=== PATIENT | female | born 2000 | race Caucasian/White ===

== ENCOUNTER 2020-09-04 17:37 | Outpatient (CLI) | payer BC, SELFPAY | END 2020-09-04 17:38 | disposition home or self-care (01) | LOC: ANHCOVIDVC 17:38 | DX: Z23 Encounter for immunization (principal) | CPT/HCPCS: 0001A; 91300 ==

== ENCOUNTER 2020-09-25 17:41 | Outpatient (CLI) | payer BC, SELFPAY | END 2020-09-25 17:42 | disposition home or self-care (01) | LOC: ANHCOVIDVC 17:41 | DX: Z23 Encounter for immunization (principal) | CPT/HCPCS: 0002A; 91300 ==

== ENCOUNTER 2022-01-22 20:48 | Emergency (ER) | payer BC, SELFPAY ==
--- NOTE | ~2022-01-22 | CT_ITS ---
EXAMINATION: CT brain wo con DATE: 01/22/2022 21:24 INDICATION: head injury, vomiting . TECHNIQUE: Computed tomography (CT) of the head was performed without intravenous contrast. The mA wa s adjusted according to patient size. Iterative reconstruction technique was employed. The dose-lengt h product was 605.33 mGy-cm. COMPARISON: None FINDINGS: No acute intracranial hemorrhage or extra-axial fluid collection. No hydrocephalus, mass, or herniation. No acute ischemic infarct. Unremarkable dural venous sinus attenuation. No acute osseous abnormality. The aerated spaces are clear. IMPRESSION: No acute intracranial process. Reviewed, dictated and finalized at location K.
--- NOTE | ~2022-01-22 | CT_ITS ---
EXAMINATION: CT thoracic spine wo con DATE: 01/22/2022 22:30 INDICATION: back pain, fall . TECHNIQUE: Computed tomography (CT) of the thoracic spine was performed without intravenous contrast. Automated exposure control and iterative reconstruction technique were employed. The dose-length pro duct was 339.83 mGy-cm. COMPARISON: None FINDINGS: 12 rib bearing thoracic type vertebral bodies. Vertebral body heights and alignment maintai rian. Facets are aligned. Posterior elements are intact. Multilevel mild degenerative disc disease. No severe central canal or neural foraminal narrowing. No fracture. Visualized lung parenchyma is clear . IMPRESSION: 1. No acute fracture or traumatic malalignment in the thoracic spine. Reviewed, dictated and finalized at location K.
[2022-01-22 21:06] VITALS: BP 110/63; PULSE 69; RESP 18; TEMP 36.5; O2SAT 100
[2022-01-22 21:49] VITALS: O2SAT 100
--- NOTE | 2022-01-22 22:01 | PC.NURSE ---
Courtney CORTEZ at bedside to assess pt.
--- NOTE | 2022-01-22 22:02 | ED.HEATRA ---
HPI - Head Injury General Chief complaint: Head Injury <JUSTIN Bernard Last Filed: 01/22/22 22:54> Stated complaint: head trauma <JUSTIN Bernard Last Filed: 01/22/22 22:54> Time Seen by Provider: 01/22/22 21:13 <JUSTIN Bernard Last Filed: 01/22/22 22:54> Source: patient <JUSTIN Bernard Last Filed: 01/22/22 22:54> Mode of arrival: ambulatory <JUSTIN Bernard Last Filed: 01/22/22 22:54> Limitations: no limitations <JUSTNI Bernard Last Filed: 01/22/22 22:54> History of Present Illness HPI Narrative: This is a 21-year-old female that presents to the emergency department after a fall today with head injury. Reports she was seated on a swing and fell backwards. She fell directly onto her mid back. She did not hit her head. She did not lose consciousness. Since she has had a headache, back pain, and has had several episodes of vomiting which prompted her to be seen. Denies vision changes, or focal numbness or weakness. <JUSTIN Bernard Last Filed: 01/22/22 22:54> Related Data Home medications: Home Medications Medication Instructions Recorded Confirmed norethindrone acetate 1.5 1 tablet PO DAILY 08/23/21 01/24/22 mg-ethinyl estradiol 30 mcg tablet (Junel) <Courtney Garcia PA-C - Last Filed: 01/22/22 22:54> Allergies/Adverse reactions: Allergies Allergy/AdvReac Type Severity Reaction Status Date / Time No Known Allergies Allergy Verified 01/24/22 09:29 <JUSTIN Bernard Last Filed: 01/22/22 22:54> Review of Systems Review of Systems: CONSTITUTIONAL: Denies fever EYES: Denies visual changes GASTROINTESTINAL: Reports nausea, vomiting MUSCULOSKELETAL: Reports back pain, and myalgia. NEUROLOGIC: Reports headache. Denies numbness, or weakness. <JUSTIN Bernard Last Filed: 01/22/22 22:54> All systems reviewed & are unremarkable except as noted in HPI and below <Courtney Garcia PA-C - Last Filed: 01/22/22 22:54> PMFSH Past Medical History Medical History: Medical History Anemia Anxiety History of bipolar disorder <Courtney Garcia PA-C - Last Filed: 01/22/22 22:54> Family History Family History: Family History Father Depression Grandparent Malignant neoplasm of prostate Other No family history of diabetes mellitus <Courtney Garcia PA-C - Last Filed: 01/22/22 22:54> Social History Social History: Social History Smoking status: Never smoker Alcohol intake: current Substance use: never Additional occupation/education comments: Agree to blood products: Yes <Courtney Garcia PA-C - Last Filed: 01/22/22 22:54> Exam Narrative: GENERAL: Well-appearing, well-nourished, and in no acute distress. HEAD: Normocephalic, atraumatic. EYES: PERRLA and EOMI. ENT: Nares clear, no rhinorrhea or epistaxis. Mucous membranes moist. Oropharynx without tonsillar hypertrophy exudate or other lesions. Bilateral TMs pearly can non-bulging NECK: Supple. No adenopathy or masses. No midline cervical spine tenderness CHEST: Clear to auscultation. No respiratory distress. No wheezes rales or rhonchi HEART: Regular rate and rhythm. No murmur heard. Normal peripheral pulses. BACK: Tender to palpation of midline thoracic spine. No lumbar spine tenderness EXTREMITIES: Normal range of motion. No edema. Strength equal in bilateral upper and lower extremities (5/5) SKIN: Warm, dry, no rash. NEURO: No focal deficits. Alert and oriented x3. Cranial nerves II through XII grossly intact PSYCH: Normal mood and affect <Courtney Garcia PA-C - Last Filed: 01/22/22 22:54> Course CUST[employer]S PORT DIRECTOR/PA Physician Supervision For this patient encounter, I reviewed the CUSTOMS PORT DIRECTOR or PA documentation, treatment alyx
--- NOTE | 2022-01-22 22:15 | PC.NURSE ---
Unable to collect bedside . Patient urinated before RN could collect. Patient states that there is no chance of and willing to sign acknowledgement of risk of CT if . CT made aware.
--- NOTE | 2022-01-22 22:26 | PC.NURSE ---
Patient off unit to CT.
[2022-01-22] MEDS: ONDANSETRON HCL ODT 4 MG TABLET PO (23:05)
== END 2022-01-22 23:24 | disposition home or self-care (01) ==
PROVIDERS: Emergency Provider Emergency Medicine; PCP Family Medicine
DX: S09.90XA Unspecified injury of head, initial encounter (principal); S29.9XXA Unspecified injury of thorax, initial encounter; Z86.2 Personal history of diseases of the blood and blood-forming organs and certain disorders involving the immune mechanism; W09.1XXA Fall from playground swing, initial encounter
CPT/HCPCS: 70450; 72128; 99284; A9270